=== PATIENT | female | born 1950 ===

== ENCOUNTER 2018-09-27 09:15 | Inpatient (IN) | payer OTHER ==
[~2018-09-27] VITALS: Ht 157.5 cm; Wt 67.1 kg
[2018-09-27] MEDS ORDERED: IBRERSARTAN PO (11:52)
[2018-09-27] MEDS ORDERED: LANZOPRAZOLE PO (11:52)
[2018-10-02] MEDS ORDERED: IRBESARTAN300 MG PO (07:44)
[2018-10-04] MEDS ORDERED: ELIQUIS2.5 MG PO (15:43)
== END 2018-10-04 17:16 | DRG 470 ==
LOC: O/R 09:15 → SURH 10-02 06:07 → RECOVERY 10-02 07:00 → SURH 10-02 10:22
PROVIDERS: ADMIT Orthopaedic Surgery
PROC: 0MNN0ZZ Release Right Knee Bursa and Ligament, Open Approach (ICD-10-PCS; 2018-10-02)
PROC: 0SRC0J9 Replacement of Right Knee Joint with Synthetic Substitute, Cemented, Open Approach (ICD-10-PCS; principal; 2018-10-02 07:00)
DX: M17.11 Unilateral primary osteoarthritis, right knee (principal); M80.00XA Age-related osteoporosis with current pathological fracture, unspecified site, initial encounter for fracture; I10 Essential (primary) hypertension; M22.11 Recurrent subluxation of patella, right knee